=== PATIENT | female | born 1985 | race Asian ===

== ENCOUNTER 2018-01-14 23:17 | Inpatient (IN) | payer OTHER ==
[~2018-01-14] VITALS: Ht 162.6 cm; Wt 50.8 kg
[~2018-01-14 23:17] MED LIST: DOXY1TAB3 PO; HYDR-3240 PO; IBUP-1222 PO; PNV91TAB3 PO
[2018-01-14 23:50] LABS: BASOPHILS # (AUTO) 0.04 x10^3/uL (0-0.1); BASOPHILS % (AUTO) 0 % (0-1); EOSINOPHILS # (AUTO) 0.15 x10^3/uL (0-0.4); EOSINOPHILS % (AUTO) 1 % (1-7); LYMPHOCYTES # (AUTO) 3.16 x10^3/uL (1-3.4); LYMPHOCYTES % (AUTO) 26 % (22-44); MD NO; MEAN CORPUSCULAR HEMOGLOBIN 28.2 pg (27.0-34.8); MEAN CORPUSCULAR HGB CONC 33.6 g/dL (32.4-35.8); MEAN CORPUSCULAR VOLUME 83.9 fL (80-100); MEAN PLATELET VOLUME 9.1 fL (7.4-10.4); MONOCYTES # (AUTO) 0.49 x10^3/uL (0.2-0.8); MONOCYTES % (AUTO) 4 % (2-9); NEUTROPHILS # (AUTO) 8.13 x10^3/uL (1.8-6.8); NEUTROPHILS % (AUTO) 68 % (42-75); PLATELET COUNT 241 x10^3/uL (130-400); RED BLOOD COUNT 4.76 x10^6/uL (3.82-5.3); RED CELL DISTRIBUTION WIDTH 13.4 % (9.6-15.2)
[2018-01-15 00:02] LABS: ANION GAP 9 mmol/L (5-15); CHLORIDE 105 mmol/L (98-107); CREATININE 0.73 mg/dL (0.55-1.02)
[2018-01-15 00:07] LABS: INTERNATIONAL NORMALIZED RATIO 0.96 (0.93-1.1)
[2018-01-15] MEDS ORDERED: OMNIPAQUE 350 MG/ML, 100ML BOTTLE ONE (00:07)
[2018-01-15] MEDS ORDERED: KETOROLAC 30 MG/1 ML IVPush ONE (01:00)
[2018-01-15] MEDS ORDERED: DIPHENHYDRAMINE 50 MG/ML, 1ML IVPush ONE (01:00)
[2018-01-15] MEDS ORDERED: PROCHLORPERAZINE 5 MG/ML, 2ML IVPush ONE (01:00)
[2018-01-15] MEDS ORDERED: DIPHENHYDRAMINE 50 MG/ML, 1ML ONE (01:03)
[2018-01-15] MEDS ORDERED: PROCHLORPERAZINE 5 MG/ML, 2ML ONE (01:03)
[2018-01-15] MEDS ORDERED: KETOROLAC 30 MG/1 ML ONE (01:04)
[2018-01-15] MEDS ORDERED: ONDANSETRON 2MG/ML, 2ML IVPush PRN ×2 (01:30→02:30)
[2018-01-15 02:05] VITALS: BP 132/69
[2018-01-15] MEDS: SODIUM CHLORIDE 0.9% 1,000 ML IV SCH ×2 (02:28→11:34)
[2018-01-15] MEDS: HEPARIN 5,000 UNITS/ML, 1ML SQ SCH ×2 (02:28→11:34)
[2018-01-15] MEDS ORDERED: LABETALOL 5MG/ML, 20ML IVPush PRN (02:30)
[2018-01-15] MEDS ORDERED: DOCUSATE 100 MG CAPSULE PO PRN (02:30)
[2018-01-15] MEDS ORDERED: POLYETHYLENE GLYCOL 17 GM PACKET PO PRN (02:30)
[2018-01-15] MEDS ORDERED: morphine SULFATE 10 MG/ML, 1ML IVPush PRN (02:30)
[2018-01-15] MEDS ORDERED: ACETAMINOPHEN 325 MG TABLET PO PRN (02:30)
[2018-01-15] MEDS ORDERED: POTASSIUM CHLORIDE 20 MEQ TAB.ER.PRT PO ONE (02:30)
[2018-01-15] MEDS ORDERED: PROCHLORPERAZINE 5 MG/ML, 2ML IV PRN (02:30)
[2018-01-15] MEDS ORDERED: hydrALAzine 20 MG/ML, 1ML IVPush PRN (02:30)
[2018-01-15] MEDS ORDERED: ONDANSETRON ODT 4 MG PO PRN (02:30)
[2018-01-15] MEDS ORDERED: DIPHENHYDRAMINE 50 MG/ML, 1ML IVPush PRN (02:30)
[2018-01-15] MEDS ORDERED: PROMETHAZINE 25 MG/ML, 1ML IM PRN (02:30)
[2018-01-15] MEDS ORDERED: BISACODYL 10 MG SUPP PR PRN (02:30)
[2018-01-15] MEDS ORDERED: OXYcodone IR 5MG TABLET PO PRN (02:30)
[2018-01-15 02:35] LABS: HEMOGLOBIN A1C 5.4 % (4.2-6.3)
[2018-01-15 02:36] LABS: FREE T4 (FREE THYROXINE) 1.21 ng/dL (0.76-1.46); THYROID STIMULATING HORMONE 2.14 mIU/L (0.358-3.740)
[2018-01-15] MEDS ORDERED: ASPIRIN 325 MG TABLET EC PO SCH (06:00)
[2018-01-15 08:26] VITALS: BP 80/48
[2018-01-15 08:53] VITALS: BP 91/54
[2018-01-15 12:56] LABS: CULTURE INDICATED? YES; MICROSCOPIC INDICATED
[2018-01-15 14:32] VITALS: BP 97/63
[2018-01-15] MEDS ORDERED: IBUP-1484 PO (14:33)
== END 2018-01-15 16:15 | disposition home or self-care (01) | DRG 103 ==
LOC: ED 23:59 → EDIP 01-15 01:11 → 4WST 01-15 01:48 → DCLOUNGE 01-15 15:57
PROVIDERS: ADMIT Internal Medicine; ATTEND Internal Medicine
DX: G43.809 Other migraine, not intractable, without status migrainosus (principal); E87.6 Hypokalemia; R53.1 Weakness; R20.0 Anesthesia of skin
CPT/HCPCS: 36415; 70450; 70496; 70498; 70551; 80047; 80048; 81001; 82040; 83036; 83735; 84439; 84443; 84703; 85025; 85610; 85730; 87086; 93005; 99291; J1644; J1885; Q9967; J0780; J1200; J7030

== ENCOUNTER → 2018-01-29 | Outpatient (CLI) | payer OTHER ==
[~2018-01-29] MED LIST changes: +GADOBUTROL 10 MMOL/10 ML VIAL ONE; +IBUP-1484 PO
== END | disposition home or self-care (01) ==
LOC: CFH 13:55
PROVIDERS: ATTEND Internal Medicine
DX: G43.909 Migraine, unspecified, not intractable, without status migrainosus (principal)
CPT/HCPCS: 70546; A9585

== ENCOUNTER 2019-05-30 11:05 | Outpatient (CLI) | payer OTHER ==
[~2019-05-30 11:05] MED LIST changes: -GADOBUTROL 10 MMOL/10 ML VIAL ONE; -IBUP-1484 PO; +IBUP-1902 PO
== END 2019-05-30 23:59 | disposition home or self-care (01) ==
LOC: LAB 11:05
PROVIDERS: ATTEND Obstetrics & Gynecology
DX: Z02.9 Encounter for administrative examinations, unspecified (principal)

== ENCOUNTER 2019-07-31 21:30 | Emergency (ER) | payer OTHER ==
[~2019-07-31] VITALS: Ht 162.6 cm; Wt 61.6 kg
--- NOTE | 2019-07-31 22:34 | NUR ---
Patient presents to ER 21-22 weeks c/o left neck pain radiating down her entire left side. She also states she is having a "weird" feeling in her stomach. This started suddenly yesterday around 1700. Patient is nauseous but not more so than she has been in her . Denies vomiting or diarrhea. Patient is in NAD. Respirations even and unlabored.
[2019-07-31] MEDS ORDERED: LIDODERM 5% PATCH TD ONE ×2 (22:46→23:00)
[2019-07-31] MEDS ORDERED: ACETAMINOPHEN 500 MG TABLET ONE (22:46)
[2019-07-31] MEDS ORDERED: ACETAMINOPHEN 500 MG TABLET PO ONE (23:00)
[2019-07-31 23:14] VITALS: BP 99/60
--- NOTE | 2019-07-31 23:30 | NUR ---
Discharge instructions given. All questions and concerns addressed. Patient ambulatory with a steady gait. Belongings with patient.
== END 2019-07-31 23:49 | disposition home or self-care (01) ==
LOC: ED 23:32
DX: O99.89 Other specified diseases and conditions complicating pregnancy, childbirth and the puerperium (principal); S16.1XXA Strain of muscle, fascia and tendon at neck level, initial encounter; Z3A.21 21 weeks gestation of pregnancy; X58.XXXA Exposure to other specified factors, initial encounter; Y93.89 Activity, other specified; Y92.89 Other specified places as the place of occurrence of the external cause; Y99.8 Other external cause status
CPT/HCPCS: 59025; 93005; 99283

== ENCOUNTER 2019-08-19 10:44 | Outpatient (CLI) | payer OTHER ==
[2019-08-19 12:20] LABS: PLATELET COUNT 238 x10^3/uL (130-400)
== END 2019-08-19 23:59 | disposition home or self-care (01) ==
LOC: LAB 10:44
PROVIDERS: ATTEND Obstetrics & Gynecology
DX: Z34.82 Encounter for supervision of other normal pregnancy, second trimester (principal); Z3A.27 27 weeks gestation of pregnancy
CPT/HCPCS: 36415; 82950; 85014; 85018; 85049; 86592

== ENCOUNTER 2019-10-21 00:06 | Outpatient (CLI) | payer MEDICAID, OTHER ==
[~2019-10-21] VITALS: Ht 162.6 cm; Wt 65.0 kg
[2019-10-21 01:01] LABS: CULTURE INDICATED? YES; MICROSCOPIC INDICATED
== END 2019-10-21 01:32 | disposition home or self-care (01) ==
LOC: LDOP 00:06
PROVIDERS: ATTEND Obstetrics & Gynecology
DX: O42.913 Preterm premature rupture of membranes, unspecified as to length of time between rupture and onset of labor, third trimester (principal); Z3A.34 34 weeks gestation of pregnancy
CPT/HCPCS: 59025; 76815; 81001; 84112; 87086; 99211; G0463

== ENCOUNTER 2019-11-25 13:18 | Outpatient (CLI) | payer MEDICAID ==
[~2019-11-25] VITALS: Ht 162.6 cm; Wt 70.0 kg
== END 2019-11-25 15:15 | disposition home or self-care (01) ==
LOC: LDOP 13:18
PROVIDERS: ATTEND Obstetrics & Gynecology
DX: O26.893 Other specified pregnancy related conditions, third trimester (principal); R10.9 Unspecified abdominal pain; Z3A.39 39 weeks gestation of pregnancy
CPT/HCPCS: 59025; 99201; G0463

== ENCOUNTER 2019-11-27 14:27 | Inpatient (IN) | payer OTHER ==
[~2019-11-27] VITALS: Ht 162.6 cm; Wt 69.5 kg
[2019-11-29] MEDS ORDERED: FENTANYL/BUPIV./NS/PF 0 ML EPIDCONT ONE (12:30)
[2019-11-29] MEDS ORDERED: OXYTOCIN 30U/ 0.9% NaCL 500ML 500 ML IV PRN (12:38)
[2019-11-29] MEDS ORDERED: OXYTOCIN 30U/ 0.9% NaCL 500ML 500 ML IV ONE (12:38)
[2019-11-29 12:45] VITALS: BP 119/77
[2019-11-29] MEDS ORDERED: OXYTOCIN 30U/ 0.9% NaCL 500ML 500 ML ONE ×2 (12:56→18:30)
[2019-11-29] MEDS ORDERED: MISOPROSTOL 200 MCG TABLET ONE (12:56)
[2019-11-29] MEDS ORDERED: NEWBORN KIT ONE (12:56)
[2019-11-29] MEDS ORDERED: LIDOCAINE 1%, 20ML ONE (12:56)
[2019-11-29] MEDS: LACTATED RINGERS 1,000 ML IV SCH ×2 (12:59→17:10)
[2019-11-29] MEDS ORDERED: TERBUTALINE 1 MG/ML, 1ML IVPush PRN (13:00)
[2019-11-29] MEDS ORDERED: FENTANYL PF 100 MCG/2ML IVPush PRN (13:00)
[2019-11-29] MEDS ORDERED: TERBUTALINE 1 MG/ML, 1ML SQ PRN (13:00)
[2019-11-29] MEDS ORDERED: FENTANYL PF 100 MCG/2ML IV PRN (13:00)
[2019-11-29] MEDS ORDERED: CALCIUM CARBONATE 500 MG TAB.CHEW PO PRN (13:00)
[2019-11-29] MEDS ORDERED: SODIUM CITRATE/CITRIC ACID 30 ML UDC PO PRN (13:00)
[2019-11-29] MEDS ORDERED: ONDANSETRON 2MG/ML, 2ML IVPush PRN (13:00)
[2019-11-29 13:28] LABS: BASOPHILS # (AUTO) 0.02 x10^3/uL (0-0.1); BASOPHILS % (AUTO) 0 % (0-1); EOSINOPHILS # (AUTO) 0.03 x10^3/uL (0-0.4); EOSINOPHILS % (AUTO) 0 % (1-7); LYMPHOCYTES # (AUTO) 1.45 x10^3/uL (1-3.4); LYMPHOCYTES % (AUTO) 20 % (22-44); MD NO; MEAN CORPUSCULAR HEMOGLOBIN 29.9 pg (27.0-34.8); MEAN CORPUSCULAR HGB CONC 33.9 g/dL (32.4-35.8); MEAN CORPUSCULAR VOLUME 88.1 fL (80-100); MEAN PLATELET VOLUME 9.2 fL (7.4-10.4); MONOCYTES % (AUTO) 4 % (2-9); NEUTROPHILS # (AUTO) 5.51 x10^3/uL (1.8-6.8); NEUTROPHILS % (AUTO) 75 % (42-75); PLATELET COUNT 197 x10^3/uL (130-400); RED BLOOD COUNT 4.01 x10^6/uL (3.82-5.3); RED CELL DISTRIBUTION WIDTH 16.5 % (9.6-15.2)
[2019-11-29] MEDS ORDERED: D5%-LACTATED RINGERS 1,000 ML IV SCH (14:00)
[2019-11-29] MEDS ORDERED: FENTANYL PF 100 MCG/2ML ONE (16:42)
[2019-11-29] MEDS ORDERED: BUPIVACAINE 0.25% ONE (17:32)
[2019-11-29] MEDS ORDERED: FENTANYL/BUPIV./NS/PF 250 ML EPIDCONT ONE (17:33)
[2019-11-29] MEDS ORDERED: MAGNESIUM HYDROXIDE 8%, 30ML UDC PO PRN (18:30)
[2019-11-29] MEDS ORDERED: MISOPROSTOL 200 MCG TABLET PR PRN (18:30)
[2019-11-29] MEDS ORDERED: HYDROcodone/APAP 5/325 TABLET PO PRN ×2 (18:30)
[2019-11-29] MEDS ORDERED: IBUPROFEN 600 MG TABLET ONE (18:30)
[2019-11-29] MEDS ORDERED: SIMETHICONE 80 MG CHEW TAB PO PRN (18:30)
[2019-11-29] MEDS ORDERED: ACETAMINOPHEN 325 MG TABLET PO PRN (18:30)
[2019-11-29] MEDS ORDERED: ONDANSETRON 2MG/ML, 2ML IV PRN (18:30)
[2019-11-29] MEDS ORDERED: METHYLERGONOVINE 0.2 MG/ML IM PRN (18:30)
[2019-11-29] MEDS ORDERED: CARBOPROST TROMETHAMINE 250 MCG/ML, 1ML IM PRN (18:30)
[2019-11-29] MEDS: IBUPROFEN 600 MG TABLET PO PRN (18:37)
[2019-11-29 20:23] VITALS: BP 104/70
[2019-11-29] MEDS: OXYTOCIN 30U/ 0.9% NaCL 500ML 500 ML IV SCH (20:45)
[2019-11-29 23:26] VITALS: BP 104/67
[2019-11-30] MEDS: DOCUSATE 100 MG CAPSULE PO PRN ×2 (00:38→08:20)
[2019-11-30] MEDS: IBUPROFEN 600 MG TABLET PO PRN ×3 (00:39→14:19)
[2019-11-30 02:27] LABS: BASOPHILS # (AUTO) 0.01 x10^3/uL (0-0.1); BASOPHILS % (AUTO) 0 % (0-1); EOSINOPHILS # (AUTO) 0.02 x10^3/uL (0-0.4); EOSINOPHILS % (AUTO) 0 % (1-7); LYMPHOCYTES % (AUTO) 16 % (22-44); MD NO; MEAN CORPUSCULAR HEMOGLOBIN 29.6 pg (27.0-34.8); MEAN CORPUSCULAR HGB CONC 33.5 g/dL (32.4-35.8); MEAN CORPUSCULAR VOLUME 88.3 fL (80-100); MEAN PLATELET VOLUME 8.8 fL (7.4-10.4); MONOCYTES # (AUTO) 0.42 x10^3/uL (0.2-0.8); MONOCYTES % (AUTO) 4 % (2-9); NEUTROPHILS # (AUTO) 9.19 x10^3/uL (1.8-6.8); NEUTROPHILS % (AUTO) 80 % (42-75); PLATELET COUNT 174 x10^3/uL (130-400); RED BLOOD COUNT 3.44 x10^6/uL (3.82-5.3)
[2019-11-30 03:52] VITALS: BP 110/74
[2019-11-30] MEDS: OXYTOCIN 30U/ 0.9% NaCL 500ML 500 ML IV SCH (04:25)
[2019-11-30 08:01] VITALS: BP 108/79
[2019-11-30] MEDS ORDERED: PRENATAL VIT/IRON/FA 1 EACH TABLET PO SCH (09:00)
[2019-11-30 12:10] VITALS: BP 113/79
[2019-11-30 16:30] VITALS: BP 110/78
== END 2019-11-30 18:45 | disposition home or self-care (01) | DRG 807 ==
LOC: LDIP 11-29 12:23 → 2NW 11-29 20:15
PROVIDERS: ADMIT Obstetrics & Gynecology; ATTEND Obstetrics & Gynecology
PROC: 10E0XZZ Delivery of Products of Conception, External Approach (ICD-10-PCS; principal; 2019-11-29)
PROC: 0HQ9XZZ Repair Perineum Skin, External Approach (ICD-10-PCS; 2019-11-29)
PROC: 10907ZC Drainage of Amniotic Fluid, Therapeutic from Products of Conception, Via Natural or Artificial Opening (ICD-10-PCS; 2019-11-29)
PROC: 4A1HXCZ Monitoring of Products of Conception, Cardiac Rate, External Approach (ICD-10-PCS; 2019-11-29)
DX: O32.6XX0 Maternal care for compound presentation, not applicable or unspecified (principal); Z37.0 Single live birth; O70.0 First degree perineal laceration during delivery; Z3A.40 40 weeks gestation of pregnancy
CPT/HCPCS: 36415; 85025; 86592; 86850; 86870; 86900; 86922; 86923; G0378; J3010; J2590; J7120

== ENCOUNTER 2020-06-11 08:04 | Emergency (ER) | payer MEDICAID, OTHER ==
[~2020-06-11] VITALS: Ht 162.6 cm; Wt 60.7 kg
[2020-06-11 08:10] VITALS: BP 110/72
== END 2020-06-11 09:11 | disposition home or self-care (01) ==
LOC: ED 08:21
DX: H10.211 Acute toxic conjunctivitis, right eye (principal)
CPT/HCPCS: 99283

== ENCOUNTER 2020-07-01 20:33 | Emergency (ER) | payer MEDICAID, OTHER ==
[~2020-07-01] VITALS: Ht 152.4 cm; Wt 60.0 kg
[2020-07-01] MEDS ORDERED: PROCHLORPERAZINE 5 MG/ML, 2ML ONE (20:44)
[2020-07-01] MEDS ORDERED: DIPHENHYDRAMINE 50 MG/ML, 1ML ONE (20:44)
[2020-07-01] MEDS ORDERED: KETOROLAC 30 MG/1 ML ONE (20:44)
--- NOTE | 2020-07-01 20:57 | NUR ---
Pt comes in with complaints of n/v as well as a headache. Patient stated that it started at 1600 was given 4mg of zofran by EMS with no effect. Patient noted to be still dry heaving when arrived. Patient medicated per MAR. Provider at bedside.
[2020-07-01] MEDS ORDERED: PROCHLORPERAZINE 5 MG/ML, 2ML IVPush ONE (21:00)
[2020-07-01] MEDS ORDERED: DIPHENHYDRAMINE 50 MG/ML, 1ML IVPush ONE (21:00)
[2020-07-01] MEDS ORDERED: SODIUM CHLORIDE 0.9% 1,000ML IVBOLUS ONE (21:00)
[2020-07-01] MEDS ORDERED: SODIUM CHLORIDE FLUSH 10ML SYR IVF ONE (21:00)
[2020-07-01] MEDS ORDERED: KETOROLAC 30 MG/1 ML IVPush ONE (21:00)
[2020-07-01 22:19] VITALS: BP 93/51
== END 2020-07-01 22:24 | disposition home or self-care (01) ==
LOC: ED 22:14
DX: R51.9 Headache, unspecified (principal); R11.2 Nausea with vomiting, unspecified; H53.149 Visual discomfort, unspecified
CPT/HCPCS: 96361; 96374; 96375; 99284; J0780; J1200; J1885; J7030

== ENCOUNTER 2020-07-31 15:15 | Emergency (ER) | payer MEDICAID ==
[~2020-07-31] VITALS: Ht 162.6 cm; Wt 58.6 kg
[~2020-07-31 15:15] MED LIST changes: +HYDR-1067 PO; -HYDR-3240 PO
[2020-07-31] MEDS ORDERED: ONDANSETRON ODT 4 MG PO ONE (16:00)
--- NOTE | 2020-07-31 16:48 | NUR ---
PT AMBULATORY TO ROOM FROM LOBBY AT THIS TIME
--- NOTE | 2020-07-31 16:51 | NUR ---
PT REC'D LST COVID VACCINE 07/30, NOW WITH BODY ACHES, FEVER, FATIGUE, N/V, TELLO. TOOK TYLENOL 500MG AT 1400. TELLO PAIN NOW AT 01/29.
[2020-07-31] MEDS ORDERED: ONDANSETRON ODT 4 MG ONE (17:09)
[2020-07-31] MEDS ORDERED: IBUPROFEN 600 MG TABLET ONE (17:09)
--- NOTE | 2020-07-31 17:11 | NUR ---
PT MED NOTED. PO CHALLENGE FLUIDS AT BEDSIDE. PT INST TO TAKE SMALL SIPS EVERY FEW MINUTES.
[2020-07-31] MEDS ORDERED: IBUPROFEN 600 MG TABLET PO ONE (17:30)
--- NOTE | 2020-07-31 17:35 | NUR ---
PT TOLLERATING PO FLUIDS AND DENIES NAUSEA. NO IMPROVEMENT IN TELLO PAIN. HOWEVER PT VERBALIZES THAT PAIN IS TOLLERABLE
[2020-07-31 17:40] VITALS: BP 100/50
--- NOTE | 2020-07-31 17:41 | NUR ---
Patient/Caregiver given discharge instructions and they have confirmed that they understand the instructions. Patient ambulatory with steady gait.
== END 2020-07-31 17:42 | disposition home or self-care (01) ==
LOC: ED 17:04
DX: M79.10 Myalgia, unspecified site (principal); R50.9 Fever, unspecified; R53.83 Other fatigue
CPT/HCPCS: 99283; Q0162